=== PATIENT | male | born 1990 | race African-American/Black ===

== ENCOUNTER 2016-11-10 16:41 | Emergency (ER) | payer SELFPAY ==
[2016-11-10] MEDS ORDERED: Lidocaine 1% PF 5 ML VIAL ONE (17:55)
== END 2016-11-10 18:22 | disposition home or self-care (01) ==
LOC: ERS 16:41
DX: L02.215 Cutaneous abscess of perineum (principal); J45.909 Unspecified asthma, uncomplicated
CPT/HCPCS: 46050; J2001

== ENCOUNTER 2016-11-12 08:15 | Emergency (ER) | payer SELFPAY ==
[2016-11-12] MEDS ORDERED: Lidocaine 1% PF 5 ML VIAL ONE (09:24)
[2016-11-12] MEDS ORDERED: cefTRIAXone\\ROCEPHIN 1 GM VIAL ONE (09:24)
== END 2016-11-12 09:50 | disposition home or self-care (01) ==
LOC: ERS 08:15
DX: K61.0 Anal abscess (principal); J45.909 Unspecified asthma, uncomplicated
CPT/HCPCS: 96372; J0696; J2001

== ENCOUNTER 2017-02-14 09:45 | Emergency (ER) | payer SELFPAY | END 2017-02-14 11:09 | disposition home or self-care (01) | LOC: ERS 09:45 | DX: T23.671A Corrosion of second degree of right wrist, initial encounter (principal); J45.909 Unspecified asthma, uncomplicated | CPT/HCPCS: 99283 ==

== ENCOUNTER 2017-08-02 09:54 | Emergency (ER) | payer SELFPAY | END 2017-08-02 11:02 | disposition home or self-care (01) | LOC: ERS 09:54 | DX: L02.01 Cutaneous abscess of face (principal); L03.211 Cellulitis of face; J45.909 Unspecified asthma, uncomplicated; F17.210 Nicotine dependence, cigarettes, uncomplicated | CPT/HCPCS: 10060 ==

== ENCOUNTER 2017-11-06 09:44 | Emergency (ER) | payer SELFPAY | END 2017-11-06 11:00 | disposition home or self-care (01) | LOC: ERS 09:44 | DX: L03.115 Cellulitis of right lower limb (principal); J45.909 Unspecified asthma, uncomplicated | CPT/HCPCS: 99282 ==

== ENCOUNTER 2018-12-18 07:37 | Emergency (ER) | payer OTHER, SELFPAY ==
[2018-12-18] MEDS ORDERED: Fluorescein Opthalmic Strip ONE (07:53)
[2018-12-18] MEDS ORDERED: Proparacaine 0.5% Opth 15 ML BOT ONE (07:53)
== END 2018-12-18 08:16 | disposition home or self-care (01) ==
LOC: ERS 07:37
DX: S05.91XA Unspecified injury of right eye and orbit, initial encounter (principal); J45.909 Unspecified asthma, uncomplicated; W22.8XXA Striking against or struck by other objects, initial encounter
CPT/HCPCS: 99283

== ENCOUNTER 2020-04-19 08:52 | Emergency (ER) | payer SELFPAY ==
[2020-04-19 09:24] LABS: #Basophils 0.1 thou/uL (0.0-0.2); #Eosinphils 0.2 thou/uL (0.0-0.7); #Lymphocytes 1.8 thou/uL (1.20-3.40); #Neutrophils 6.1 thou/uL (1.40-6.50); %Basophils 1.2 % (0.0-1.0); %Eosinophils 1.8 % (0.0-10.0); %Lymphocytes 19.7 % (21.0-51.0); %Monocytes 11.3 % (0.0-10.0); Hemoglobin 14.4 g/dL (14.0-18.0); Mean Corpuscular HGB CONC 34.3 g/dL (32.0-36.0); Mean Corpuscular Hemoglobin 32.2 pg (27.0-31.0); Mean Platelet Volume 6.9 fL (7.4-10.4); Platelet Count 257 thou/uL (130-400); RBC Distribution Width 11.3 % (11.5-14.5); Red Blood Cell (RBC) Count 4.48 mill/uL (4.70-6.10); White Blood Cell (WBC) Count 9.2 thou/uL (4.8-10.8)
[2020-04-19] MEDS ORDERED: Ondansetron PF 4 MG/2 ML Vial ONE (09:28)
[2020-04-19] MEDS ORDERED: Piperacillin/Tazobactam 3.375 GM VIAL ONE (09:28)
[2020-04-19] MEDS ORDERED: Morphine 4 MG/ML VIAL ONE (09:28)
[2020-04-19 09:48] LABS: ALT (SGPT) 9 U/L (8-55); AST (SGOT) 14 U/L (5-34); Albumin 4.3 g/dL (3.5-5.0); Alkaline Phosphatase 56 U/L (40-110); Anion Gap 14 mmol/L (10-20); BUN (Urea Nitrogen) 14 mg/dL (8.9-20.6); Bilirubin, Total 0.8 mg/dL (0.2-1.2); Calc. Creatinine Clearance 0 mL/min (70-130); Carbon Dioxide 25 mmol/L (22-29); Chloride 102 mmol/L (98-107); Globulin 3.1 g/dL (2.4-3.5); Glucose 130 mg/dL (70-105); Potassium 3.6 mmol/L (3.5-5.1); Protein, Total 7.4 g/dL (6.0-8.3); Sodium 137 mmol/L (136-145)
[2020-04-19] MEDS ORDERED: Lidocaine 1% (PF) 30 ML VIAL ONE (10:21)
[2020-04-19] MEDS ORDERED: Iopamidol-370 76% 500 ML 1 ML ONE (12:01)
== END 2020-04-19 11:11 | disposition home or self-care (01) ==
LOC: ERS 08:52
DX: L02.214 Cutaneous abscess of groin (principal); J45.909 Unspecified asthma, uncomplicated
CPT/HCPCS: 10060; 36415; 72193; 80053; 85025; 96365; 96375; J2001; J2270; J2405; J2543; Q9967

== ENCOUNTER 2020-04-19 14:10 | Emergency (ER) | payer SELFPAY | END 2020-04-19 14:45 | disposition home or self-care (01) | LOC: ERS 14:10 | DX: Z48.817 Encounter for surgical aftercare following surgery on the skin and subcutaneous tissue (principal) | CPT/HCPCS: 99282 ==

== ENCOUNTER 2020-06-04 15:58 | Emergency (ER) | payer SELFPAY | END 2020-06-04 18:54 | disposition home or self-care (01) | LOC: ERS 15:58 | DX: L02.215 Cutaneous abscess of perineum (principal) | CPT/HCPCS: 99282 ==

== ENCOUNTER 2020-07-16 14:13 | Emergency (ER) | payer SELFPAY | END 2020-07-16 15:49 | disposition home or self-care (01) | LOC: ERS 14:13 | DX: L02.411 Cutaneous abscess of right axilla (principal) | CPT/HCPCS: 99283 ==

== ENCOUNTER 2021-02-09 00:36 | Emergency (ER) | payer OTHER, SELFPAY ==
[2021-02-09] MEDS ORDERED: Acetaminophen 500 MG TAB ONE (02:13)
[2021-02-09 03:00] LABS: SARS-CoV-2 NAA Rapid Test DETECTED (NotDetected)
== END 2021-02-09 03:20 | disposition home or self-care (01) ==
LOC: ERS 00:36
DX: U07.1 COVID-19 (principal)
CPT/HCPCS: 0240U; 99283

== ENCOUNTER 2023-03-20 09:51 | Emergency (ER) | payer SELFPAY | END 2023-03-20 10:20 | disposition home or self-care (01) | LOC: ERS 09:51 | DX: K08.89 Other specified disorders of teeth and supporting structures (principal); F17.200 Nicotine dependence, unspecified, uncomplicated | CPT/HCPCS: 99282 ==